=== PATIENT | male | born 1995 | race Caucasian/White ===

== ENCOUNTER 2022-12-11 13:38 | Emergency (ER) | payer OTHER, SELFPAY ==
--- NOTE | ~2022-12-11 | CT_ITS ---
EXAMINATION: NONCONTRAST MAXILLOFACIAL CT INDICATION INFORMATION: Right jaw dislocation. COMPARISON: None. TECHNIQUE: Separate noncontrast CT examinations of the maxillofacial bones were performed. Coronal and sagittal images were created for each examination at the technologist workstation. This CT examination was performed using dose optimization techniques as appropriate, variously including the following: *Automated exposure control *Adjustment of mA and/or kV according to patient size (this includes techniques or standardized protocols for targeted exams where dose is matched to indication/reason for exam; i.e. extremities or head) *Use of iterative reconstruction technique DLP: 262 mGy-cm FINDINGS: Bilateral anterior dislocation of the mandibular condyles with respect to their temporal grooves. No discrete osseous fractures. No acute maxillofacial fractures are seen. Atelectatic completely opacified right maxillary sinus. Remaining of the paranasal sinuses, mastoids and middle ear cavities are clear. The orbits demonstrate a normal appearance bilaterally. The globes are intact, and there are no suspicious findings to suggest retrobulbar hemorrhage. Visualized portions of the cervical spine and brain are unremarkable. CT/CT facial bones wo IV con IMPRESSION: 1. Bilateral anterior dislocation of the mandibular condyles with respect to their temporal grooves. 2. No acute maxillofacial fractures. 3. Completely opacified right maxillary sinus.
[2022-12-11 14:16] VITALS: BP 130/79; PULSE 58; RESP 17; TEMP 37.3; O2SAT 100; BMI 21.4
--- NOTE | 2022-12-11 14:19 | ED_ITS ---
HPI - General Adult General Chief complaint: General Medical Stated complaint: disloated jaw from yawning Time Seen by Provider: 12/11/22 17:06 Source: patient Mode of arrival: ambulatory Limitations: no limitations History of Present Illness HPI narrative: 27 yold male presents to the ED for jaw being stuck after yawning. Patient states jaw has been stuck since 12:00pm. patient states pmh of TMJ. patient denies any recent trauma to the face. Related Data Allergies Allergy/AdvReac Type Severity Reaction Status Date / Time peanut [PEANUT] Allergy Unknown UNKNOWN Verified 12/11/22 17:25 Review of Systems Review of Systems: Jaw. Yes all other systems are reviewed and are negative [facility] Social History Social History Smoked in Last 30 Days: No Advance Directives: No Advance Directives Information Provided: No Physical Exam ED Vital Signs: Vital Signs - 24 hr 12/11/22 14:16 Temperature 99.1 F Pulse Rate 58 Respiratory Rate 17 Blood Pressure 130/79 Pulse Oximetry 100 Oxygen Delivery Method Room Air BMI result Body Mass Index 21.4 Const General: cooperative, healthy appearing, comfortable, no acute distress, well developed, alert, awake and Physically active Orientation/consciousness: oriented to person, oriented to place, oriented to time and patient oriented x3 HENMT Other: Jaw is stuck open Head: Yes normal to inspection, Yes No palpable skull fracture present, Yes normocephalic, Yes atraumatic and No abrasion Eyes General: appearance normal, both eyes and all related structures Neck Neck: Yes normal visual inspection, Yes full ROM, Yes no lymphadenopathy, Yes no meningeal signs, Yes trachea midline, Yes supple, No anterior neck swelling and No tender Chest Chest palpation & inspection: normal inspection of the chest and normal palpation of entire chest wall Resp Effort & Inspection: normal respiratory effort and able to speak in complete sentences Auscultation: clear to auscultation bilaterally Cardio Jugular venous distension: no JVD Heart sounds: S1 normal heart sound present and S2 normal heart sound present GI Inspection: Yes normal to inspection and No abdominal wall ecchymosis Palpation (GI): Soft to palpation, not firm, nontender, no guarding and not rigid General: No CVA tenderness and Yes no CVA tenderness Back/Spine/Pelvis Back: no CVA tenderness, No CVA tenderness and No back tenderness Skin General skin exam: no rashes or lesions noted, elasticity normal and turgor normal Neuro General: oriented to person, oriented to place, oriented to time, patient oriented x3, gait normal, tone normal, moves all extremities, Normal light touch and pain sensation, no meningeal signs, no focal motor deficits, CN's II-XI intact bilaterally and normal sensation to monofilament Extrem General: Yes normal to inspection and Yes full ROM Psych Appearance: grossly normal, well kempt and not disheveled Course Course Course Narrative: This is a rapid medical exam: Additional HPI, ROS, PE not included below will be deferred to primary provider. Patient is a 27-year-old male with history of TMJ presenting to the emergency department with complaint of jaw becoming dislocated after yawning around 12:50. Fiance states has happened once previously around one year ago. Patient managing secretions in triage and communicating via telephone/hands. Medications Administered Discontinued Medications Generic Name Dose Route Start Last Admin Trade Name Freq PRN Reason Stop Dose Admin Morphine Sulfate 2 mg 12/11/22 17:15 12/11/22 17:26 Morphine Sulfate 2 Mg/Ml Cartridge IVPUSH 12/11/22 17:16 2 mg ONCE ONE Administration Protocol Propofol 100 mg 12/11/22 19:49 12/11/22 20:11 Propofol 200 Mg/20 Ml Vial IVPUSH 12/11/22 19:50 100 mg ONCE ONE Administration Medical Decision Making Medical Decision Making [facility] Narrative: 27-year-old male with draw stuck open with history of TMJ. Patient denies any recent trauma to face or jaw. Initial attempt at reduction not successful without sedation. Will send for facial CT scan to confirm jaw dislocation. Case discussed with Dr. Mauricio for possible conscious sedation if CT scan does show TMJ dislocation. 18:40pm CT scan confirms bilateral jaw dislocation. Patient signed consent for conscious sedation. Waiting for bed for patient to go for conscious sedation. 8:24pm: Patient placed on monitor and given 50mg of propofol. Crash cart was near patient. After propofol before I can attempt reduction patient's jaw went back into normal alignment on its own. Patient head wrapped. Will give patient information for follow up with [facility] Differential Diagnosis Differential Diagnoses: The differential diagnosis associated with the presentation includes ( Jaw fracture, jaw dislocation, subluxation) Admission/Observation Consideration of admission/observation: Escalation of care including admission/observation considered Independent Interpretation I performed an independent interpretation of an: CT Scan Radiology Impression Discussion of test interpretation with radiology: I have reviewed the radiologist's reading. Independent Historian Clinical information obtained from an independent historian. History obtained from or confirmed by: Spouse External Record Review External record reviewed: Other (Prior ED visist) Discharge Plan Discharge Clinical Impression: Dislocation closed, jaw Patient Disposition: Home, Self-Care Instructions: Jaw Dislocation (ED) Additional Instructions: Return to the ED immediately for any jaw dislocation, clicking sounds, pain, drooling, change in voice, chest pain, shortness of breath, or any other concerning symptoms. Please follow-up with [facility]. Dr. Donald Alston , [phone], [facility], [facility] [place] [address]. Stand Alone Forms: Work/School Release Interventions: ED Discharge Assessment Last Done: 12/11/22 21:41 Discharge Date/Time: 12/11/22 21:46 Print Language: Estonian
[2022-12-11] MEDS: Morphine Sulfate 2 MG/ML CARTRIDGE IVPUSH (17:26)
--- NOTE | 2022-12-11 19:25 | PC.NURSE ---
awaiting room in main ER to do conscious sedation. hotel lobby conciergeHERBERT castellanos
[2022-12-11 20:02] VITALS: BP 131/78; PULSE 76; RESP 18; O2SAT 100
[2022-12-11 20:11] VITALS: BP 123/77; PULSE 70; RESP 18; O2SAT 100
[2022-12-11] MEDS: propofoL 200 MG/20 ML VIAL 100 MG IVPUSH (20:11)
--- NOTE | 2022-12-11 20:21 | PC.NURSE ---
Pt presents with jaw dislocation. Planned for jaw reduction. Dr Mauricio, Joe PA, Farzad RT, and Shanita RN at bedside. Pt was given 50mg propofol IV by Dr. Mauricio. Pt was then able to move his jaw back in place on his own. Pt reporting 1/10 pain and is speaking in full sentences at this time. Pt did not fall asleep during procedure. Pt is A&Ox4, GCS 15, aldrette score 10. VSS throughout. Pt girlfriend at the bedside at this time.
== END 2022-12-11 21:46 | disposition home or self-care (01) ==
PROVIDERS: Emergency Provider Emergency Medicine Emergency Medical Services
DX: S03.03XA Dislocation of jaw, bilateral, initial encounter (principal); X50.9XXA Other and unspecified overexertion or strenuous movements or postures, initial encounter; Y93.9 Activity, unspecified; Y92.9 Unspecified place or not applicable; Y99.9 Unspecified external cause status
CPT/HCPCS: 70486; 96374; 96375; 99284; J2270

== ENCOUNTER 2023-03-09 20:42 | Emergency (ER) | payer OTHER, SELFPAY ==
--- NOTE | ~2023-03-09 | XR_ITS ---
EXAMINATION: XR WRIST, RIGHT XR HAND, RIGHT CLINICAL INFORMATION: Pain, crushed between furniture and wall. COMPARISON: None available. TECHNIQUE: 4 views of the right wrist/right hand. FINDINGS: No acute fracture or subluxation. Carpal rows are maintained. No significant soft tissue abnormality. No unexpected radiopaque foreign bodies. XR/XR hand wrist RT IMPRESSION: No significant radiographic abnormality seen in the right wrist nor right hand.
[2023-03-09 21:23] VITALS: BP 138/85; PULSE 85; RESP 18; TEMP 37.1; O2SAT 98; BMI 21.6
--- NOTE | 2023-03-09 22:09 | ED.EXTPRO ---
HPI - Extremity Problem General Chief complaint: Extremity Injury, Upper Stated complaint: dropped piece of furniture on rt hand/swollen Time Seen by Provider: 03/09/23 21:30 Source: patient, RN notes reviewed and old records reviewed Mode of arrival: ambulatory Limitations: no limitations History of Present Illness HPI Narrative: 27-year-old male presents for evaluation of right hand and wrist pain. He reports that just prior to arrival he accidentally got his hands question between a large entertainment center and the wall. He reports some pain to the hand and wrist and increased numbness extending to the right 5th finger. He reports some mild decreased range of motion of the right wrist No other injuries Related Data Allergies Allergy/AdvReac Type Severity Reaction Status Date / Time peanut [PEANUT] Allergy Unknown UNKNOWN Verified 03/09/23 21:23 Review of Systems Musculoskeletal: Musculoskeletal: Reports arthralgias, Reports joint swelling, Reports limited range of motion and Reports numbness Neurologic: Reports numbness and Reports paresthesias PMFSH Social History Social History Advance Directives: No Advance Directives Information Provided: No Physical Exam Vital Signs: Vital Signs: Last Vital Signs Temp 98.8 F 03/09/23 21:23 Pulse 85 03/09/23 21:23 Resp 18 03/09/23 21:23 BP 138/85 03/09/23 21:23 Pulse Ox 98 03/09/23 21:23 O2 Del Method Room Air 03/09/23 21:23 BMI result Body Mass Index 21.6 Const: General: healthy appearing, comfortable, no acute distress, alert and awake Nutritional Appearance: well nourished Orientation/consciousness: patient oriented x3 HEENT: Head: Yes normocephalic and Yes atraumatic Eyes: Eyelids: Yes eyelids normal Conjunctivae: conjunctivae normal Sclerae: sclerae normal Corneas: corneas normal Pupils: Equal, round and reactive pupils present EOM: EOMs intact bilaterally Neck: Neck: Yes full ROM Resp: Effort & Inspection: normal respiratory effort, able to speak in complete sentences and not labored Skin: General skin exam: elasticity normal Neuro: General: patient oriented x3 Cranial nerves: Yes Equal, round and reactive pupils present and Yes Bilaterally intact EOM present Cognition (Neuro): normal cognition Extrem: Other: Patient has mild edema mostly to the ulnar side of the right hand on dorsal surface. He has no significant tenderness to palpation of the right hand and wrist. Patient has full range of motion with flexion extension of all fingers the right hand. He has good range of motion of the right wrist to flexion extension. There is no right elbow edema or tenderness Medical Decision Making Medical Decision Making MDM Narrative: Patient appears to have a minor injury to the right hand/wrist. X-rays will be ordered. He reports numbness but has good cap refill, good range of motion and good sensation to the entire right hand and wrist. Differential Diagnosis Differential Diagnoses: The differential diagnosis associated with the presentation includes Contusion Hand fracture Wrist fracture Dislocation Independent Interpretation I performed an independent interpretation of an: Plain X-Ray (X-rays negative for acute fracture) Radiology Impression Discussion of test interpretation with radiology: I have reviewed the radiologist's reading. (No significant radiographic abnormality seen in the right wrist or right hand) Discharge Plan Discharge Clinical Impression: Sprain and strain of wrist, Contusion Patient Disposition: Home, Self-Care Instructions: Wrist Injury (ED) Additional Instructions: Your x-ray did not show any evidence of fracture. Your symptoms are likely related to increasing swelling Elevate the hand above your heart while resting. Use ibuprofen as needed for pain and swelling Ice the area every 4 hours for the next 2 days Follow-up with your primary doctor
== END 2023-03-09 22:32 | disposition home or self-care (01) ==
PROVIDERS: Emergency Provider Emergency Medicine
DX: S63.591A Other specified sprain of right wrist, initial encounter (principal); S60.211A Contusion of right wrist, initial encounter; M25.531 Pain in right wrist; Y29.XXXA Contact with blunt object, undetermined intent, initial encounter; Y93.9 Activity, unspecified; Y92.009 Unspecified place in unspecified non-institutional (private) residence as the place of occurrence of the external cause; Y99.9 Unspecified external cause status
CPT/HCPCS: 29125; 73110; 73130; 99283